=== PATIENT | female | born 1955 | race Caucasian/White ===

== ENCOUNTER 2018-03-14 11:02 | Emergency (ER) | payer OTHER ==
--- NOTE | 2018-03-14 11:44 | ER Document Report ---
ED Extremity Problem, Lower - General Chief Complaint: Toe Injury Stated Complaint: RIGHT GREAT TOE PAIN Time Seen by Provider: 03/14/18 11:43 Mode of Arrival: Ambulatory Information source: Patient TRAVEL OUTSIDE OF THE [place] IN LAST 30 DAYS: No - HPI Patient complains to provider of: Swelling, Other - INFECTION Location: Foot Occurred: Yesterday Where: Home Onset/Duration: Gradual Quality of pain: Dull Severity: Mild Context: Other - CUT TOENAIL TOO SHORT Recent injury: No Exacerbated by: Movement - Related Data Allergies/Adverse Reactions: aspirin [Aspirin] Adverse Reaction (Verified 03/14/18 11:03) povidone-iodine [From Betadine] Adverse Reaction (Verified 03/14/18 11:03) Soap [From Betadine] Adverse Reaction (Verified 03/14/18 11:03) Past Medical History - General Information source: Patient - Social History Smoking Status: Never Smoker Cigarette use (# per day): No Chew tobacco use (# tins/day): No Frequency of alcohol use: Rare Drug Abuse: None Lives with: Family Family History: DM, Hyperlipidemia, Hypertension, Malignancy Patient has suicidal ideation: No Patient has homicidal ideation: No - Past Medical History Cardiac Medical History: Reports: Hx Hypertension Pulmonary Medical History: Reports: None Neurological Medical History: Reports: None Endocrine Medical History: Reports: Hx Diabetes Mellitus Type 2 - CONTROLLED W/ DIET Renal/ Medical History: Reports: Hx Ovarian Cysts. Denies: Hx Peritoneal Dialysis Malignancy Medical History: Reports: Hx Renal (Kidney) Cancer - right GI Medical History: Reports: Hx Gastroesophageal Reflux Disease, Hx Colonoscopy , Hx Endoscopy Musculoskeletal Medical History: Reports Hx Arthritis, Reports Hx Musculoskeletal Deformity - chronic back pain, Reports Hx Musculoskeletal Trauma Psychiatric Medical History: Reports: None Past Surgical History: Reports: Hx Hysterectomy, Hx Kidney (Renal Surgery) - rt kidney removed, Hx Orthopedic Surgery - bilat knees, Hx Urinary Tract Surgery - Immunizations Immunizations up to date: Yes Hx Diphtheria, Pertussis, Tetanus Vaccination: Yes - 2007 Review of Systems - Review of Systems Constitutional: No symptoms reported. denies: Chills, Fever EENT: No symptoms reported Cardiovascular: No symptoms reported Respiratory: No symptoms reported Gastrointestinal: No symptoms reported Female Genitourinary: Post menopausal Musculoskeletal: No symptoms reported Skin: See HPI Neurological/Psychological: No symptoms reported Physical Exam - Vital signs Vitals: Temp Pulse Resp BP Pulse Ox 97.8 F 89 20 143/76 H 96 03/14/18 11:11 03/14/18 11:11 03/14/18 11:11 03/14/18 11:11 03/14/18 11:11 Course - Vital Signs Vital signs: Temp Pulse Resp BP Pulse Ox 97.8 F 89 20 143/76 H 96 03/14/18 11:11 03/14/18 11:11 03/14/18 11:11 03/14/18 11:11 03/14/18 11:11 - Consults DR. FLORES Time consulted: 12:00 Consulted provider: follow-up in office Procedures - Nail Trephanation/Removal Right Foot Great toe Time completed: 01:35 Nail Trepanation/Removal Location: R. GREAT TOE Betadine prep applied: No - SHUR-CLENS (IODINE ALLERGY) Sterile Dressing Applied: Yes Finger Splint: No Notes: 03/14/18 14:32 RING BLOCK @ PROX. PHALANX W/ 2% PLAIN LIDOCAINE (2.5cc), NAIL PLATE REMOVED BY BLUNT DISSECTION, MINIMAL TRAUMA. Discharge - Discharge Clinical Impression: Ingrown toenail of right foot with infection Condition: Stable Disposition: HOME, SELF-CARE Instructions: Ingrown Nail ([facility]), Trimethoprim-Sulfa ([facility]) Additional Instructions: KEEP FOOT ELEVATED MUCH A POSSIBLE. CLEAN NAIL BED AND CHANGE BANDAGE ONCE A DAY. MEDS DIRECTED. CALL DR. FLORES'S OFFICE TOMORROW FOR FOLLOWUP APPOINTMENT. RETURN TO E.R. IF PROBLEMS. Prescriptions: Sulfamethoxazole/Trimethoprim [Sulfamethoxazole-Tmp Ds Tablet] 2 tab PO BID #30 tablet Referrals: TC FLORES DPM [ACTIVE STAFF] - Follow up in 1 week
[2018-03-14] MEDS ORDERED: LIDOCAINE 2% INJ (20 MG/ML) 20 ML MDV INJ ONE (12:08)
[2018-03-14 13:51] VITALS: BP 141/65
== END 2018-03-14 13:59 | disposition home or self-care (01) ==
LOC: ER 11:02
DX: L60.0 Ingrowing nail (principal); E11.9 Type 2 diabetes mellitus without complications; I10 Essential (primary) hypertension; Z85.528 Personal history of other malignant neoplasm of kidney
CPT/HCPCS: 99283; 11750; J3490